=== PATIENT | male | born 1995 | race Caucasian/White ===

== ENCOUNTER 2018-02-13 16:44 | Emergency (ER) | payer OTHER ==
[2018-02-13] MEDS ORDERED: Ibuprofen 800 MG TAB ONE (16:58)
[2018-02-13] MEDS ORDERED: Azithromycin 250 MG TAB ONE (17:22)
--- NOTE | 2018-02-13 17:53 | RAD ---
PA AND LATERAL CHEST: 02/13/18 HISTORY: Shortness of breath and hemoptysis. Heart size within normal limits. Right paratracheal mass area which suggests adenopathy, not definit nikolas calcified. Questionably increased markings in the right upper lobe which may questionably represe nt an early infiltrate. Left lung is clear. IMPRESSION: 1. Questionable minimal right upper lobe infiltrate. This may just be related to overlap of the rib. 2. Right paratracheal mass probably on the basis of adenopathy. Further evaluation with CT which could be performed on a nonemergent basis would be recommended. Code T POS: SONYA
== END 2018-02-13 17:40 | disposition home or self-care (01) ==
LOC: NAV ERS 16:44
DX: J18.9 Pneumonia, unspecified organism (principal); F32.9 Major depressive disorder, single episode, unspecified; Z79.899 Other long term (current) drug therapy
CPT/HCPCS: 71046

== ENCOUNTER 2018-10-16 22:45 | Emergency (ER) | payer BC ==
[2018-10-16] MEDS ORDERED: Metoclopramide HCl 10 MG/2 ML VIAL ONE (23:33)
[2018-10-16] MEDS ORDERED: Ondansetron ODT 4 MG TAB ONE (23:33)
[2018-10-16] MEDS ORDERED: Acetaminophen 325 MG TAB ONE (23:33)
[2018-10-16] MEDS ORDERED: diphenhydrAMINE 25 MG CAP ONE (23:33)
== END 2018-10-17 00:19 | disposition home or self-care (01) ==
LOC: NAV ERS 22:45
DX: G43.909 Migraine, unspecified, not intractable, without status migrainosus (principal); F31.9 Bipolar disorder, unspecified; F41.9 Anxiety disorder, unspecified; J45.909 Unspecified asthma, uncomplicated
CPT/HCPCS: 96372; 99283; J2765; Q0162; Q0163